=== PATIENT | female | born 1970 | race American Indian/Alaskan Native ===

== ENCOUNTER 2018-04-27 19:00 | Emergency (ER) | payer SELFPAY ==
[2018-04-27] MEDS ORDERED: Albuterol-Ipratrop 3 mg / 0.5 (3 ml) UD ONE ×3 (19:10→21:28)
[2018-04-27 19:12] VITALS: PULSE 88; TEMP 98
--- NOTE | 2018-04-27 19:25 | C.PDOC ---
History Of Present Illness 47 year old female with a history of asthma (no previous intubations or admissions) presents to the emergency department with complaints of shortness of breath which started 4 days ago. Patient states that it feels exactly like a pre vious asthma exacerbation. Patient notes wheezing but denies chest pain, trauma, abdominal pain, sore throat, fever, chills or nasal congestion. Patient states that she has been using albuterol nebulizer at home as well as Symbicort without adequate relief. Time Seen by Provider: 04/27/18 19:23 Chief Complaint (Nursing): Shortness Of Breath History Per: Patient History/Exam Limitations: no limitations Onset/Duration Of Symptoms: Days (4) Current Symptoms Are (Timing): Still Present Current Respiratory Medications: Albuterol, Other (Symbicort) Associated Symptoms: denies: Fever, Chills, Chest Pain, Other (sore throat, nasal congestion) Past Medical History Reviewed: Historical Data, Nursing Documentation, Vital Signs Vital Signs: Last Vital Signs Temp 98.0 F 04/27/18 19:08 Pulse 88 04/27/18 19:08 Resp 16 04/27/18 19:08 BP 136/78 04/27/18 19:08 Pulse Ox 99 04/27/18 19:08 - Medical History PMH: Asthma Surgical History: No Surg Hx Family History: States: No Known Family Hx - Social History Hx Alcohol Use: No Hx Substance Use: No Review Of Systems Constitutional: Negative for: Fever, Chills Eyes: Negative for: Pain, Vision Change ENT: Negative for: Ear Pain, Ear Discharge, Nose Pain, Nose Congestion, Mouth Pain, Throat Pain Cardiovascular: Negative for: Chest Pain Respiratory: Positive for: Shortness of Breath. Negative for: Cough, Hemoptysis, SOB with Excertion, Pleuritic Pain, Sputum Gastrointestinal: Negative for: Nausea, Vomiting, Abdominal Pain, Constipation, Melena Genitourinary: Negative for: Dysuria, Frequency, Incontinence Musculoskeletal: Negative for: Neck Pain Skin: Negative for: Rash, Lesions Neurological: Negative for: Weakness, Numbness Physical Exam - Physical Exam Appears: Well, Non-toxic, No Acute Distress Skin: Normal Color, Warm, Dry Head: Atraumatic, Normacephalic Eye(s): bilateral: Normal Inspection, PERRL, EOMI Nose: Normal Oral Mucosa: Moist Tongue: Normal Appearing Lips: Normal Appearing Teeth: Normal Dentition Gingiva: Normal Appearing, No Erythema, No Ulceration, No Swelling, No Tender Throat: Normal, No Erythema Neck: Normal, Normal ROM, Supple, Other (no meningeal signs) Chest: Symmetrical, No Tenderness Cardiovascular: Rhythm Regular, No Murmur Respiratory: No Accessory Muscle Use, No Rales, No Rhonchi, No Stridor, Wheezing (mild wheezing bilaterally), No Plerual Rub, Other (speaking full sentences) Gastrointestinal/Abdominal: Normal Exam, Soft, No Tenderness Back: Normal Inspection, No CVA Tenderness, No Vertebral Tenderness, No Decreased ROM, No Muscle Spasm, No Paraspinal Tenderness Extremity: Normal ROM, No Tenderness, No Calf Tenderness, No Swelling Neurological/Psych: Oriented x3, Normal Speech, Normal Cognition, Normal Motor Gait: Steady ED Course And Treatment - Laboratory Results Result Diagrams: 04/27/18 20:03 04/27/18 20:03 O2 Sat by Pulse Oximetry: 99 (RA) Pulse Ox Interpretation: Normal Medical Decision Making Medical Decision Making: Well appearing 47 yr old F w/ hx of asthma without previous intubations or admission p/w shortness of breath. Mild wheezes noted b/l w/ pt speaking in full sentences in NAD. No chest pain noted. No abdominal pain or any other comp laints. No hx of blood clots or leg swelling. No recent trauma or surgery. Low pretest wells, PERC out. Impression: Mild Asthma Exacerbation Plan: CMP CBC CXR Duoneb 3ml INH Solu-Medrol 125mg IVP Poc Urine 2144 labs, xray unremarkable lungs much improved. continues speaking in full sentences in nad. has albuterol inhaler at home clear for d/c home w/ f/u and return indications. Pt agreeable to plan. Disposition - Disposition Referrals: Jerald Betancourt MD [Staff Provider] - [facility] (powering [employer]) [facility] [Outside] [facility] [Outside] [facility] [Outside] Disposition: HOME/ ROUTINE Disposition Time: 21:46 Condition: GOOD Additional Instructions: KATHLEEN GONZALEZ, thank you for letting us take care of you today. Your provider was Crescencio Bains and you were treated for ASTHMA/SOB. The emergency medical care you received today was directed at your acute symptoms. If you were prescribed any medication, please fill it and take as directed. It may take several days for your symptoms to resolve. Return to the Emergency Department if your symptoms worsen, do not improve, or if you have any other problems. Please contact your doctor or call one of the physicians/clinics you have been referred to that are listed on the Patient Visit Information form that is included in your discharge packet. Bring any paperwork you were given at discharge with you along with any medications you are taking to your follow up visit. Our treatment cannot replace ongoing medical care by a primary care provider outside of the emergency department. Thank you for allowing the [facility] team to be part of your care today. If you had an X-Ray or CT scan: A Radiologist will review the ED reading if any change in treatment is needed we will contact you. If you had a blood, urine, or wound culture: It will take several days for the results, if any change in treatment is needed we will contact you. If you had an STI test: It will take 48 hours for the results. Please call after 1 week if you have not heard back. Prescriptions: predniSONE [Prednisone] 40 mg PO DAILY 5 Days #10 tab Instructions: Asthma in Adults, Asthma, Adult (DC) Forms: [facility] ([place]) - Clinical Impression Clinical Impression: Asthma exacerbation - Scribe Statement The provider has reviewed the documentation as recorded by the Scribe (Branden Downs) Provider Attestation: All medical record entries made by the Scribe were at my direction and personally dictated by me. I have reviewed the chart and agree that the record accurately reflects my personal performance of the history, physical exam, medical decision making, and the department course for this patient. I have also personally directed, reviewed, and agree with the discharge instructions and disposition.
[2018-04-27] MEDS ORDERED: Albuterol-Ipratrop 3 mg / 0.5 (3 ml) UD INH STA ×2 (19:55→21:12)
[2018-04-27 19:56] VITALS: RESP 18
[2018-04-27 20:12] LABS: BASO # 0.1 K/uL (0.0-0.2); BASO % 0.6 % (0.0-2.0); EOS # 0.9 K/uL (0.0-0.7); EOS % 7.7 % (0.0-4.0); HEMOGLOBIN 13.7 g/dL (11.0-16.0); LYMPH # 3.4 K/uL (1.0-4.3); LYMPH % 30.8 % (20.0-40.0); MEAN CELL VOLUME 89.6 fL (81.0-99.0); MEAN CORPUSCULAR HEMOGLOBIN 29.1 pg (27.0-31.0); MEAN CORPUSCULAR HGB CONC 32.5 g/dL (33.0-37.0); MEAN PLATELET VOLUME 8.4 fL (7.2-11.7); MONO # 0.5 K/uL (0.0-0.8); MONO % 4.6 % (0.0-10.0); NEUT # 6.2 K/uL (1.8-7.0); NEUT % 56.3 % (50.0-75.0); RBC 4.69 Mil/uL (3.80-5.20); WHITE BLOOD COUNT 11.1 K/uL (4.8-10.8)
[2018-04-27 20:25] LABS: ALB/GLOB RATIO 1.3 (1.0-2.1); ALBUMIN 4.7 g/dL (3.5-5.0); ALT/SGPT 22 U/L (9-52); AST/SGOT 28 U/L (14-36); BLOOD UREA NITROGEN 9 mg/dL (7-17); CALCIUM 9.1 mg/dl (8.6-10.4); GFR NON-AFRICAN AMERICAN > 60
[2018-04-27 22:28] VITALS: BP 121/79
[2018-04-28 06:42] VITALS: O2SAT 99
--- NOTE | 2018-04-28 11:35 | RAD ---
Date of service: 04/27/2018 HISTORY: Shortness of breath. Asthma. COMPARISON: No prior. FINDINGS: LUNGS: No active pulmonary disease. PLEURA: No significant pleural effusion identified, no pneumothorax apparent. CARDIOVASCULAR: No aortic atherosclerotic calcification present. Normal cardiac size. No pulmonary vascular congestion. OSSEOUS STRUCTURES: No significant abnormalities. VISUALIZED UPPER ABDOMEN: Normal. OTHER FINDINGS: None. IMPRESSION: No active disease.
== END 2018-04-27 22:25 | disposition home or self-care (01) ==
LOC: C.ER 19:00
DX: J45.901 Unspecified asthma with (acute) exacerbation (principal)
CPT/HCPCS: 71045; 80053; 81025; 85025; 99285; J2930